=== PATIENT | female | born 1965 | race Caucasian/White ===

== ENCOUNTER 2019-11-29 17:20 | Emergency (ER) | payer BC ==
[~2019-11-29] VITALS: Ht 165.1 cm; Wt 63.2 kg
[2019-11-29 17:34] VITALS: Ht 165.1 cm; Wt 63.2 kg
[2019-11-29] MEDS ORDERED: SYNTHROID25 MCG (17:34)
[2019-11-29] MEDS ORDERED: TYLENOL W/CODEI1 TAB PO (18:58)
[2019-11-29 19:40] VITALS: BP 145/99
== END 2019-11-29 19:40 | disposition home or self-care (01) ==
LOC: D.ER 17:20
DX: S90.31XA Contusion of right foot, initial encounter (principal); E07.9 Disorder of thyroid, unspecified; W22.8XXA Striking against or struck by other objects, initial encounter; Y93.9 Activity, unspecified; Y92.9 Unspecified place or not applicable